=== PATIENT | male | born 1935 | race Caucasian/White ===

== ENCOUNTER 2018-03-25 21:05 | Observation (INO) | payer MEDICARE ==
[2018-03-25 22:03] LABS: Bilirubin Negative (Negative); Blood, Urine Negative (Negative); Clarity CLEAR (Clear); Glucose, Urine (Dipstick) Negative (Negative); Leukocyte Negative (Negative); Nitrite Negative (Negative); Protein, Urine (Dipstick) Negative (Neg-Trace)
[2018-03-25 22:25] LABS: #Eosinphils 0.1 thou/uL (0.0-0.7); #Lymphocytes 1.5 thou/uL (1.20-3.40); #Monocytes 0.6 thou/uL (0.11-0.59); #Neutrophils 13.9 thou/uL (1.40-6.50); %Basophils 0.2 % (0.0-1.0); %Eosinophils 0.4 % (0.0-10.0); %Lymphocytes 9.1 % (21.0-51.0); %Monocytes 3.7 % (0.0-10.0); %Neutrophils 86.7 % (42.0-75.0); Hemoglobin 14.2 g/dL (14.0-18.0); Mean Corpuscular HGB CONC 31.8 g/dL (32.0-36.0); Mean Corpuscular Hemoglobin 29.3 pg (27.0-31.0); Mean Corpuscular Volume 92.3 fL (78.0-98.0); Mean Platelet Volume 6.6 fL (7.4-10.4); Platelet Count 379 thou/uL (130-400); RBC Distribution Width 13.5 % (11.5-14.5); Red Blood Cell (RBC) Count 4.86 mill/uL (4.70-6.10); White Blood Cell (WBC) Count 16.1 thou/uL (4.8-10.8)
[2018-03-25 22:48] LABS: ALT (SGPT) 16 U/L (8-55); AST (SGOT) 26 U/L (5-34); Albumin 3.3 g/dL (3.4-4.8); Alkaline Phosphatase 152 U/L (40-150); Anion Gap 12 mmol/L (10-20); BUN (Urea Nitrogen) 12 mg/dL (8.4-25.7); Bilirubin, Total 0.8 mg/dL (0.2-1.2); Calc. Creatinine Clearance 0 mL/min (70-130); Calcium 8.2 mg/dL (7.8-10.44); Carbon Dioxide 23 mmol/L (23-31); Chloride 108 mmol/L (98-107); Estimated GFR-MDRD Greater than 90; Globulin 3.3 g/dL (2.4-3.5); Glucose 91 mg/dL (83-110); Potassium 3.7 mmol/L (3.5-5.1); Protein, Total 6.6 g/dL (5.8-8.1); Sodium 139 mmol/L (136-145)
[2018-03-25] MEDS ORDERED: cefTRIAXone\\ROCEPHIN 2 GM VIAL ONE (23:26)
--- NOTE | 2018-03-25 23:46 | RAD ---
CHEST ONE VIEW: INDICATIONS: Cough. Altered mental status. COMPARISON: 09/01/2014 FINDINGS: There is stable cardiomegaly. There are bibasilar air space opacities, suspicious for pneumonia or a spiration. This is superimposed upon chronic lung changes. No pneumothorax is evident. There is di ffuse osteopenia. IMPRESSION: 1. Bibasilar air space opacification, suspicious for aspiration or pneumonia. 2. Stable cardiomegaly. POS: [facility]
[2018-03-26] MEDS ORDERED: Azithromycin 500 MG VIAL ONE (00:17)
--- NOTE | 2018-03-26 00:24 | CT ---
CT BRAIN WITHOUT CONTRAST: INDICATIONS: History of seizure. History of fall last week. COMPARISON: 01/19/2015 FINDINGS: There is stable postoperative change of a left frontal craniectomy and right globe prosthetic replace ment. There is stable encephalomalacia involving the left frontal lobe and the anterior aspect of th e left temporal lobe. There is a remote lacunar infarct involving the left thalamus. There is mild chronic small vessel white matter ischemic change. No definite acute infarct, hemorrhage, or hydroce phalus is present. No overt midline shift is evident. The mastoid air cells are clear. The visuali zed paranasal sinuses are clear. IMPRESSION: No definite acute intracranial abnormality. POS: [facility]
[2018-03-26] MEDS ORDERED: levETIRAcetam In NaCl (Iso-Os) 1,000 MG in Premix Bag 1 BAG IVPB SCH (00:30)
[2018-03-26] MEDS ORDERED: Lorazepam 2 MG/ML VIAL SLOW IVP PRN (02:07)
[2018-03-26] MEDS ORDERED: Acetaminophen 325 MG TAB PO PRN ×2 (02:07→07:09)
[2018-03-26 03:55] VITALS: BMI 18.7
[2018-03-26] MEDS ORDERED: Zolpidem Tartrate 5 MG TAB PO PRN (07:09)
[2018-03-26] MEDS ORDERED: Loratadine 10 MG TAB PO PRN (07:09)
[2018-03-26] MEDS ORDERED: Eucerin (Mineral Oil/Petrolatum,White) 30 gm Jar TOP PRN (07:09)
[2018-03-26] MEDS ORDERED: Senokot S 8.6-50 MG TAB PO PRN (07:09)
[2018-03-26] MEDS ORDERED: Artificial Tears 18 DROP/0.9 ML EA EYE PRN (07:09)
[2018-03-26] MEDS ORDERED: Loperamide HCl 2 MG CAP PO PRN (07:09)
[2018-03-26] MEDS ORDERED: HYDROcodone/Acetaminophen 5/325 mg Tablet PO PRN (07:09)
[2018-03-26] MEDS ORDERED: Calcium Carbonate 500 MG ChewTAB PO PRN (07:09)
[2018-03-26] MEDS ORDERED: Sodium Chloride 0.65% Nasal 44 ML BOT EA NARE PRN (07:09)
[2018-03-26] MEDS ORDERED: Ondansetron ODT 4 MG TAB PO PRN (07:09)
[2018-03-26] MEDS ORDERED: Cepastat Lozenges 1 LOZ PO PRN (07:09)
[2018-03-26] MEDS ORDERED: Ondansetron PF 4 MG/2 ML Vial IVP PRN (07:09)
[2018-03-26] MEDS ORDERED: Diabetic Tussin 200 MG/10 ML UDCUP PO PRN (07:09)
[2018-03-26] MEDS ORDERED: Bisacodyl 10 MG SUPP PR PRN (07:09)
[2018-03-26] MEDS ORDERED: hydrALAZINE 20 MG/ML VIAL SLOW IVP PRN (07:09)
[2018-03-26] MEDS: Losartan 25 MG TAB PO SCH ×2 (10:27→13:02)
[2018-03-26] MEDS: Piperacillin/Tazobactam 3.375 GM in Sodium Chloride 0.9% 100 ML IVPB SCH ×4 (10:27→23:50)
[2018-03-26] MEDS: Multivit, Therapeutic 1 TAB PO SCH ×2 (10:28→13:03)
[2018-03-26] MEDS: Famotidine 20 MG TAB PO SCH ×3 (10:28→22:25)
[2018-03-26] MEDS: Amlodipine 10 MG TAB PO SCH ×2 (10:28→13:02)
[2018-03-26] MEDS: Enoxaparin Sodium 30 MG/0.3 ML SYRINGE SC SCH ×2 (10:29→13:02)
[2018-03-26] MEDS: Dextrose 5 % And 0.9 % NaCl 1,000 ML IV SCH ×3 (10:43→22:20)
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
[2018-03-26] MEDS ORDERED: traZODone HCl 50 MG TAB PO SCH (21:00)
[2018-03-27] MEDS: Piperacillin/Tazobactam 3.375 GM in Sodium Chloride 0.9% 100 ML IVPB SCH ×2 (05:50→11:33)
[2018-03-27 06:20] LABS: #Basophils 0.1 thou/uL (0.0-0.2); #Eosinphils 0.3 thou/uL (0.0-0.7); #Lymphocytes 3.5 thou/uL (1.20-3.40); #Monocytes 0.8 thou/uL (0.11-0.59); #Neutrophils 6.4 thou/uL (1.40-6.50); %Basophils 0.8 % (0.0-1.0); %Eosinophils 2.9 % (0.0-10.0); %Lymphocytes 31.3 % (21.0-51.0); %Monocytes 7.4 % (0.0-10.0); %Neutrophils 57.6 % (42.0-75.0); Hemoglobin 14.6 g/dL (14.0-18.0); Mean Corpuscular HGB CONC 31.8 g/dL (32.0-36.0); Mean Corpuscular Hemoglobin 29.4 pg (27.0-31.0); Mean Corpuscular Volume 92.5 fL (78.0-98.0); Mean Platelet Volume 6.7 fL (7.4-10.4); Platelet Count 360 thou/uL (130-400); RBC Distribution Width 13.6 % (11.5-14.5); Red Blood Cell (RBC) Count 4.95 mill/uL (4.70-6.10)
[2018-03-27 07:38] LABS: ALT (SGPT) 14 U/L (8-55); AST (SGOT) 20 U/L (5-34); Alkaline Phosphatase 135 U/L (40-150); Anion Gap 11 mmol/L (10-20); BUN (Urea Nitrogen) 9 mg/dL (8.4-25.7); Bilirubin, Total 0.9 mg/dL (0.2-1.2); Calc. Creatinine Clearance 58 mL/min (70-130); Calcium 8.1 mg/dL (7.8-10.44); Carbon Dioxide 24 mmol/L (23-31); Chloride 110 mmol/L (98-107); Estimated GFR-MDRD Greater than 90; Glucose 94 mg/dL (83-110); Potassium 3.1 mmol/L (3.5-5.1); Sodium 142 mmol/L (136-145)
[2018-03-27] MEDS: Enoxaparin Sodium 30 MG/0.3 ML SYRINGE SC SCH (08:45)
[2018-03-27] MEDS: Multivit, Therapeutic 1 TAB PO SCH (08:46)
[2018-03-27] MEDS: Amlodipine 10 MG TAB PO SCH (08:46)
[2018-03-27] MEDS: Losartan 25 MG TAB PO SCH (08:46)
[2018-03-27] MEDS: Famotidine 20 MG TAB PO SCH (08:46)
[2018-03-27] MEDS ORDERED: Potassium Chloride 20 MEQ TAB PO SCH (11:30)
[2018-03-27] MEDS: Dextrose 5 % And 0.9 % NaCl 1,000 ML IV SCH (12:15)
--- NOTE | 2018-03-27 14:03 | RAD ---
PORTABLE SEMI UPRIGHT CHEST ONE VIEW: History: 83-year-old male with history of follow up cough and altered mental status. FINDINGS: There is cardiomegaly with increased linear and interstitial markings in the perihilar and particular ly in the infrahilar and lower lobe regions bilaterally showing little change from the prior exam. Th ere is a suggestion of at least a moderate sized hiatal hernia. IMPRESSION: Persistent bilateral linear and interstitial parenchymal changes, particularly in the mid and lower l merlene zones, probably showing slight improvement in the midlung zones when compared to the prior study. Cardiomegaly. Evidence for probable at least moderate sized hiatal hernia. No new confluent process. Continued short term follow up for complete clearing. No pneumothorax. POS: [facility]
[2018-03-27 15:52] VITALS: BP 142/87; TEMP 97.3
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
[2018-03-28] MEDS ORDERED: Prevnar 13-Val Conj/PF 0.5 ML SYRINGE IM ONE (09:00)
== END 2018-03-27 16:55 | disposition home or self-care (01) ==
LOC: ERS 21:05 → CCU 03-26 01:49 → 2SE 03-26 18:34
PROVIDERS: ADMIT Internal Medicine; ATTEND Internal Medicine
DX: G40.909 Epilepsy, unspecified, not intractable, without status epilepticus (principal); J69.0 Pneumonitis due to inhalation of food and vomit; G93.40 Encephalopathy, unspecified; G30.9 Alzheimer's disease, unspecified; F02.80 Dementia in other diseases classified elsewhere, unspecified severity, without behavioral disturbance, psychotic disturbance, mood disturbance, and anxiety; I10 Essential (primary) hypertension; Z86.73 Personal history of transient ischemic attack (TIA), and cerebral infarction without residual deficits; Z79.899 Other long term (current) drug therapy
CPT/HCPCS: 70450; 71045 ×2; 80053 ×2; 80177; 80185; 81003; 83605; 84146; 85025 ×2; 87040; 93005; 96365; 96366 ×2; 96367 ×2; 96372; 97139 ×2; 97530; 99285; G0378 ×3; G8978; G8979; 36415; 90471; 90670; G0009; J0456; J0696; J1650; J1953; J2543; J7050

== ENCOUNTER 2018-05-02 22:29 | Inpatient (IN) | payer MEDICARE ==
[2018-05-02 23:59] LABS: Troponin I 0.044 ng/mL (< 0.028)
[2018-05-03] MEDS ORDERED: Sodium Chloride 0.9% 1,000 ML IV SCH (02:36)
[2018-05-03 02:55] LABS: Troponin I 0.048 ng/mL (< 0.028)
[2018-05-03 02:57] VITALS: BMI 16.6
--- NOTE | 2018-05-03 03:21 | PDOC.EVN ---
Event Note - Event Note Event Note: Spoke with IRASEMA, Sadaf Real at around 2300 on day of admission from ED in regard to code status. IRASEMA reports DNR code status. I have informed her to bring [employer] paperwork in today. Regardless, patient is AOx0 and next surrogate decision maker is his , but he has none, and next would be his children. Son, who was at bedside, and daughter (Sadaf Real, IRASEMA) were in agreement to proceed with DNR code status.
[2018-05-03] MEDS ORDERED: Cefepime 1 GM in Sodium Chloride 0.9% 100 ML IVPB SCH (08:00)
[2018-05-03] MEDS ORDERED: Vancomycin HCl 1 GM in Premix Bag 1 BAG IVPB SCH (09:00)
--- NOTE | 2018-05-03 09:28 | PDOC.EVN ---
Event Note - Event Note Event Note: pt seen and examined spoke with son at bedside. I did discuss hospice given his current medical condition. Son is considering hospice but would like pulmonary to give a recommendation in regards to left lung mass/infection then they will decide.
[2018-05-03] MEDS ORDERED: Lorazepam 2 MG/ML VIAL ONE (16:11)
[2018-05-03] MEDS: Dextrose 5 % And 0.9 % NaCl 1,000 ML IV SCH (16:51)
[2018-05-03] MEDS: Cefepime 1 GM in Sodium Chloride 0.9% 100 ML IVPB SCH (19:31)
[2018-05-03] MEDS: Lorazepam 2 MG/ML VIAL SLOW IVP PRN (22:05)
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
[2018-05-04] MEDS ORDERED: Acetaminophen 650 MG in Premix Bag 1 BAG IVPB SCH (01:30)
[2018-05-04 01:41] LABS: #Lymphocytes 1.3 thou/uL (1.20-3.40); #Monocytes 0.6 thou/uL (0.11-0.59); #Neutrophils 6.9 thou/uL (1.40-6.50); %Basophils 0.2 % (0.0-1.0); %Eosinophils 0.2 % (0.0-10.0); %Lymphocytes 14.4 % (21.0-51.0); %Monocytes 6.5 % (0.0-10.0); %Neutrophils 78.8 % (42.0-75.0); Hemoglobin 9.9 g/dL (14.0-18.0); Mean Corpuscular HGB CONC 33.1 g/dL (32.0-36.0); Mean Corpuscular Hemoglobin 31.3 pg (27.0-31.0); Mean Corpuscular Volume 94.4 fL (78.0-98.0); Mean Platelet Volume 7.1 fL (7.4-10.4); Platelet Count 313 thou/uL (130-400); RBC Distribution Width 13.8 % (11.5-14.5); Red Blood Cell (RBC) Count 3.16 mill/uL (4.70-6.10); White Blood Cell (WBC) Count 8.8 thou/uL (4.8-10.8)
[2018-05-04] MEDS: Cefepime 1 GM in Sodium Chloride 0.9% 100 ML IVPB SCH (04:44)
[2018-05-04] MEDS: Lorazepam 2 MG/ML VIAL SLOW IVP PRN (07:59)
[2018-05-04] MEDS: Dextrose 5 % And 0.9 % NaCl 1,000 ML IV SCH (08:04)
[2018-05-04] MEDS ORDERED: Vancomycin HCl 1.25 GM in Sodium Chloride 0.9% 250 ML 250 ML IVPB SCH (09:00)
[2018-05-04] MEDS ORDERED: Morphine 2 MG/ML SYRINGE SLOW IVP PRN (10:30)
[2018-05-04] MEDS ORDERED: Bisacodyl 10 MG SUPP PR PRN (10:31)
[2018-05-04] MEDS ORDERED: Scopolamine 1.5 mg/72 hour Patch TD SCH (10:45)
[2018-05-04 11:46] VITALS: BP 159/101; TEMP 98.5
--- NOTE | 2018-05-05 07:10 | DIS ---
DATE OF ADMISSION: 05/03/2018 DATE OF DISCHARGE: 05/04/2018 DISCHARGE DIAGNOSES: 1. Acute metabolic encephalopathy. 2. Left lower lung abscess versus consolidation. 3. Advanced dementia. 4. Aspiration pneumonia. HOSPITAL COURSE: The patient is an 83-year-old male who lives with his family, who presented to the hospital with altered mental status. According to the patient's family, he had been declining for over a couple of days and was very altered when they brought him to the hospital. The patient did have a CT abdomen and pelvis, which indicated a very large loculated area on his left lower lung area. Given his recent discharge from the hospital for aspiration pneumonia and a history of dementia, the family decided to admit the patient into hospice. The patient is a DNR. Hospice Services was consulted, and the patient has been discharged to inpatient hospice. HOME MEDICATIONS: His home medications will be; 1. Keppra mg b.i.d. 2. Saw palmetto 160 daily. 3. Seroquel 50 mg at bedtime p.r.n. 4. Multivitamin 1 daily. 5. Augmentin 1 p.o. b.i.d. PHYSICAL EXAMINATION: VITAL SIGNS: 98.5, 73, 14, 99% on room air, 155/97. GENERAL: He is completely altered, however, able to move all extremities. Does not respond. CV: S1 and S2 present. LUNGS: Mild rhonchi all over. ABDOMEN: Bowel sounds are present x2. Soft and nontender. EXTREMITIES: He has no edema. SKIN: He has some scabs to bilateral upper extremities and bilateral lower extremities. Again, he will be discharged to inpatient hospice, and family is okay with this. Job ID: [id number]
--- NOTE | 2018-05-05 20:21 | EKG ---
Test Reason : ER Blood Pressure : / mmHG Vent. Rate : 090 BPM Atrial Rate : 090 BPM P-R Int : 126 ms QRS Dur : 084 ms QT Int : 362 ms P-R-T Axes : 071 023 016 degrees QTc Int : 442 ms Sinus rhythm with Premature atrial complexes Nonspecific ST abnormality Abnormal ECG Confirmed by TK JOHNSTON, CHRISTIE ([id number]), editorial director DORIS BECK ([id number]) on 05/05/2018 8:20:13 PM Referred By: Confirmed By:CHRISTIE FREY MD
== END 2018-05-04 13:16 | disposition hospice, inpatient (51) | DRG 177 ==
LOC: ERS 22:29 → 2SE 05-03 02:12
PROVIDERS: ADMIT Internal Medicine; ATTEND Internal Medicine
DX: J69.0 Pneumonitis due to inhalation of food and vomit (principal); G93.41 Metabolic encephalopathy; F03.90 Unspecified dementia, unspecified severity, without behavioral disturbance, psychotic disturbance, mood disturbance, and anxiety; Z66 Do not resuscitate; Z51.5 Encounter for palliative care; E78.5 Hyperlipidemia, unspecified; R56.9 Unspecified convulsions
CPT/HCPCS: 36415; 80185; 83605; 83880; 84146; 84484; 85025; 87040; 93005; 96361; 96365; J0131; J0692; J1953; J2060; J2270; J3370; J7050; Q2009